=== PATIENT | male | born 1980 | race Caucasian/White ===

== ENCOUNTER 2021-10-26 15:53 | Emergency (ER) | payer OTHER, SELFPAY ==
[2021-10-26 16:00] VITALS: BP 117/69; PULSE 60; RESP 16; TEMP 36.7; O2SAT 100
--- NOTE | 2021-10-26 16:07 | ED.URI ---
HPI - URI/Sore Throat General Chief Complaint: Upper Respiratory Infection Stated Complaint: Sore Throat/Fever Source: patient and RN notes reviewed Mode of arrival: ambulatory Limitations: no limitations History of Present Illness HPI Narrative: 41 y/o male presented for c/o sinus congestion, cough, sore throat and subjective fever for 3 days. States symptoms started after swimming, and he attributed them to ingesting the chlorinated water. Pt took negative home covid test the day after symptoms started. Family with same symptoms. Pt also endorses rash today on both arms and chest. Rash is itchy, nonpainful, not draining. Has taken otc meds for symptoms. MD elicited complaint: cough Related Data Allergies Allergy/AdvReac Type Severity Reaction Status Date / Time No Known Allergies Allergy Verified 04/19/12 00:43 Review of Systems Review of Systems: CONSTITUTIONAL: Denies malaise, chills, sweats, fever EYES: Denies visual changes, redness, or discharge ENT: Reports rhinorrhea, congestion CARDIOVASCULAR: Denies chest pain, palpitations, edema RESPIRATORY: Reports cough, post nasal drainage. Denies dyspnea GASTROINTESTINAL: Denies abdominal pain, nausea, vomiting, diarrhea SKIN: Reports rash or itching MUSCULOSKELETAL: Denies myalgia NEUROLOGIC: Denies headache Exam Narrative: GENERAL: Ill-appearing, nontoxic EYES: conjunctivae clear ENT: Mucous membranes moist. TM pearly mane with dull light reflex bilaterally; no tragal tenderness. Oropharynx erythematous without lesions or exudate, no drooling, no hoarseness, no trismus, uvula midline. NECK: Supple. No lymphadenopathy CHEST: Clear to auscultation, breath sounds equal. No wheezing, rhonchi, rales, or stridor. HEART: Regular rate and rhythm. No murmur heard. SKIN: Warm, dry, no rash. NEURO: Alert and oriented x3. PSYCH: Normal mood and affect Course Course Emergency Course: Patient is aware of diagnosis, understands and agrees to treatment plan. Anticipatory guidance given. Patient agrees to follow-up as directed and is aware of reasons to seek care at the emergency department. Portions of this record may have been created with voice recognition software Level of Care: Express Care Visit Vital Signs Vital signs: Vital Signs Temperature 98.1 F 10/26/21 16:00 Pulse Rate 60 10/26/21 16:00 Respiratory Rate 16 10/26/21 16:00 Blood Pressure 117/69 10/26/21 16:00 Pulse Oximetry 100 10/26/21 16:00 Oxygen Delivery Room Air 10/26/21 16:00 Temperature 98.1 F 10/26/21 16:09 Pulse Rate 60 10/26/21 16:09 Respiratory Rate 16 10/26/21 16:09 Blood Pressure 117/69 10/26/21 16:09 Pulse Oximetry 100 10/26/21 16:09 Oxygen Delivery Room Air 10/26/21 16:09 reviewed MDM - URI/Sore Throat MDM Narrative Medical decision making narrative: Covid neg; results reviewed with pt. Advised supportive measures for URI and contact dermatitis and signs/symptoms to go to the ER. Pt is appropriate for outpt treatment and f/u. Differential Diagnosis Differential diagnosis: Likely upper respiratory infection, sinusitis and viral infection Lab Data Labs: Lab Results 10/26/21 Range/Units 16:15 POC SARS CoV-2 Ag Negative (Negative) Discharge Plan Discharge Clinical Impression: Upper respiratory infection, Contact dermatitis Patient Disposition: Home, Self-Care Condition: Stable Instructions: Upper Respiratory Infection (ED) Additional Instructions: your Rapid COVID test was negative today. If you are symptomatic with reason to believe you have COVID-19, there is a high possibility your rapid test may not have detected the virus. You should follow appropriate guidelines regarding quarantine, hand washing, mask wearing, and social distancing Rest, stay hydrated. Tylenol, Flonase/nasal spray, Zyrtec, cough syrup and cold/flu medications for symptoms as needed Take the steroid prescription as directed Shannan Berman
[2021-10-26 16:09] VITALS: BP 117/69; PULSE 60; RESP 16; TEMP 36.7; O2SAT 100
== END 2021-10-26 16:41 | disposition home or self-care (01) ==
PROVIDERS: Emergency Provider Nurse Practitioner Family
DX: J06.9 Acute upper respiratory infection, unspecified (principal); L25.9 Unspecified contact dermatitis, unspecified cause
CPT/HCPCS: 87426; 99203; C9803; G0463

== ENCOUNTER 2022-11-07 19:18 | Emergency (ER) | payer OTHER, SELFPAY ==
[2022-11-07 19:24] VITALS: BP 143/83; PULSE 74; RESP 16; TEMP 36.6; O2SAT 98
--- NOTE | 2022-11-07 19:43 | ED.EYEPROB ---
HPI - Eye Problem General Chief complaint: Eye Problems Stated complaint: Right Eye Injury Time Seen by Provider: 11/07/22 19:30 Source: patient, family, RN notes reviewed and old records reviewed Mode of arrival: ambulatory Limitations: no limitations History of Present Illness HPI Narrative: 42-year-old male who presents to the [facility] care accompanied by with complaints of being accidentally poked in the right eye while playing in the pool with his 17-year-old son. Patient has some redness to sclera and discomfort voiced to his right eye with no changes in vision with right eye watering. Patient's visual acuity right 20/20, left eye 20/[address] lenses in place. MD chief complaint: eye pain, eye redness and other (poked in eye) Onset (ago): hour(s) (within past hour) Onset description: sudden Eye Symptoms: redness and pain Severity scale (1-10): 4 Treatments Prior to Arrival: none Related Data Allergies Allergy/AdvReac Type Severity Reaction Status Date / Time No Known Allergies Allergy Verified 04/19/12 00:43 Review of Systems Review of Systems: CONSTITUTIONAL: Denies fever, chills, or sweats. EYES: Denies visual changes. Reports redness,, irritation, no eye discharge, excessive watering right eye ENT: Denies rhinorrhea, congestion, sore throat, or otalgia. CARDIOVASCULAR: Denies chest pain, palpitations, or edema. RESPIRATORY: Denies cough or dyspnea. SKIN: Denies rash or itching. NEUROLOGIC: Denies headache All systems reviewed & are unremarkable except as noted in HPI and below PMFSH Past Medical History Medical History (Updated 11/08/22 @ 15:53 by Kelley Guerra NP) Anxiety Left hand fracture Social History Social History (Updated 11/08/22 @ 15:47 by Kelley Guerra NP) Smoking status: Never smoker Alcohol intake: current Alcohol use details: social Substance use type: does not use Living arrangements: with family Gender identity (if verbalized by the patient): Male Comments At time of signature, agree with nursing past medical, surgical, social and family history. There is no relevant family history pertinent to the presenting complaint Exam Narrative: GENERAL: Well-appearing, well-nourished, and in no acute distress. HEAD: Normocephalic, atraumatic. EYES: PERRLA and EOMI. Upper and lower eyelids unremarkable. No periorbital cellulitis noted. Sclera red, irritation to right eye increased watering,poked in right eye accidentally,no visual changes ENT: Nares clear, no rhinorrhea or epistaxis. Mucous membranes moist. NECK: Supple. no lymphadenopathy CHEST: Clear to auscultation. No respiratory distress.SAO2 98% on room air HEART: Regular rate and rhythm. No murmur heard. Normal peripheral pulses. SKIN: Warm, dry, no rash. NEURO: No focal deficits. Alert and oriented x3. Course Course Emergency Course: Patient is aware of diagnosis, understands and agrees to treatment plan. Anticipatory guidance given. Patient agrees to follow-up as directed and is aware of reasons to seek care at the emergency department. Portions of this record may have been created with voice recognition software Level of Care: Express Care Visit Vital Signs Vital signs: Vital Signs Temperature 36.6 C 11/07/22 19:24 Pulse Rate 74 11/07/22 19:24 Respiratory Rate 16 11/07/22 19:24 Blood Pressure 143/83 H 11/07/22 19:24 Pulse Oximetry 98 11/07/22 19:24 Oxygen Delivery Room Air 11/07/22 19:24 Temperature 36.6 C 11/07/22 19:24 Pulse Rate 74 11/07/22 19:24 Respiratory Rate 16 11/07/22 19:24 Blood Pressure 143/83 H 11/07/22 19:24 Pulse Oximetry 98 11/07/22 19:24 Oxygen Delivery Room Air 11/07/22 19:24 Reviewed Procedures FB Removal Eye Foreign Body #1: Foreign Body Removal Date: 11/07/22 Foreign Body Removal Time: 19:35 Time Out performed: Yes Location: eye (R) Topical anesthetic used: tetracaine (0.5%)
== END 2022-11-07 19:53 | disposition home or self-care (01) ==
PROVIDERS: Emergency Provider Registered Nurse
DX: S05.01XA Injury of conjunctiva and corneal abrasion without foreign body, right eye, initial encounter (principal); W50.0XXA Accidental hit or strike by another person, initial encounter
CPT/HCPCS: 99213; A9270; G0463

== ENCOUNTER 2023-06-15 16:13 | Emergency (ER) | payer OTHER, SELFPAY ==
[2023-06-15 16:21] VITALS: BP 121/67; PULSE 71; RESP 16; TEMP 37.6; O2SAT 100
--- NOTE | 2023-06-15 16:34 | ED.GENADULT ---
HPI - General Adult General Chief complaint: Unspecified Stated complaint: Chest Pain/Toothache History of Present Illness HPI narrative: Pt is a 42 y/o male, presents to with GERD and esophageal pain that began after taking doxycycline for a saddle wound he sustained after he started sitting more for work. His PCP prescribed doxycycline 4 days ago (and his wound is resolving) however, he notes his symptoms started as reflux/heart burn, for which he took tums a couple of times with some relief. He then notes since then, he has had pain when eating or drinking in the lower esophagus without associated CP, SOB, orthopnea, NV, hematochezia or melena. He has not attempted any other modifying factors. He has no other complaints. Related Data Home Medications Medication Instructions Recorded Confirmed doxycycline hyclate 100 mg capsule 100 mg PO DAILY 06/15/23 06/15/23 Allergies Allergy/AdvReac Type Severity Reaction Status Date / Time No Known Allergies Allergy Verified 06/15/23 16:27 Review of Systems Gastrointestinal: Comments: refer to [facility] Past Medical History Medical History (Updated 06/15/23 @ 16:41 by ELISA Pena) Anxiety Left hand fracture Social History Social History (Updated 11/08/22 @ 15:47 by Kelley Guerra NP) Smoking status: Never smoker Alcohol intake: current Alcohol use details: social Substance use type: does not use Living arrangements: with family Gender identity (if verbalized by the patient): Male Exam Const: General: cooperative, healthy appearing, comfortable and no acute distress Nutritional Appearance: average body habitus Orientation/consciousness: oriented to person Limitations: no limitations HENMT: Head: normal to inspection Face/Nose/Sinus: Normal external nose present and Normal nares present Mouth: Yes Normal oral and palatal mucosa present Throat: posterior oropharynx normal Eyes: General: appearance normal, both eyes and all related structures Eyelids: eyelids normal Pupils: Equal, round and reactive pupils present Neck: Neck: normal visual inspection Lymphatic: no lymphadenopathy noted Chest: Chest palpation & inspection: normal inspection of the chest Resp: Effort & Inspection: normal respiratory effort Auscultation: clear to auscultation bilaterally Cardio: Palpation: normal PMI Rate: regular rate Rhythm: regular rhythm Heart sounds: S1 normal heart sound present and S2 normal heart sound present Peripheral pulses: Peripheral pulses 2+ throughout GI: GI Palp: No abdominal tenderness, No Abdominal aortic bruit present, Yes Soft to palpation, No Firmness to palpation present (GI), No Tenderness to palpation present (GI), No Guarding due to palpation present (GI), No Rigid due to palpation, No No hepatosplenomegaly present, No Hepatosplenomegaly present, No Hepatomegaly present, No Splenomegaly present, No Hernia present, No Palpable mass present, No Pulsatile mass present, No Aortic enlargement present, No Ascites present, No Carnett's sign positive, No Rebound tenderness present, No Bladder palpation abnormal and No Other GI palpation findings present Back/Spine/Pelvis: Back: no CVA tenderness Skin: General skin exam: normal color Neuro: General: oriented to person, oriented to place, oriented to time, patient oriented x3, gait normal, tone normal and moves all extremities Cranial nerves: Yes CN's II-XII intact bilaterally Course Course Emergency Course: Suspect gastritis/GERD symptoms secondary to doxycycline, will treat with Protonix and Carafate, complete abx as discussed, FU with PCP Saturday.ER if condition worsens. Pt is agreeable with plan. Level of Care: Express Care Visit ([id number]) Medical Decision Making MDM Narrative Medical decision making narrative: Suspect gastritis/GERD symptoms secondary to doxycycline, will treat with Protonix and Carafate, complete abx as discussed, FU with PCP Saturday.ER if condition w
== END 2023-06-15 16:45 | disposition home or self-care (01) ==
PROVIDERS: Emergency Provider Nurse Practitioner Family
DX: K21.00 Gastro-esophageal reflux disease with esophagitis, without bleeding (principal)
CPT/HCPCS: 99213; G0463